=== PATIENT | female | born 2000 | race Caucasian/White ===

== ENCOUNTER 2023-02-23 17:44 | Emergency (ER) | payer OTHER ==
[~2023-02-23] VITALS: Ht 162.6 cm; Wt 114.7 kg
[2023-02-23 18:45] LABS: BASO % 0.3 % (0.0-1.0); HEMATOCRIT 47.2 % (36.0-47.0); HEMOGLOBIN 16.2 g/dl (12.0-15.5); LYMPH # 1.7 10^3/uL (1.5-5.0); LYMPH % 11.4 % (24.0-44.0); MEAN CORPUSCULAR HEMOGLOBIN 30.1 pg (27.0-33.0); MEAN CORPUSCULAR HGB CONC 34.3 g/dl (32.0-36.5); MEAN CORPUSCULAR VOLUME 87.6 fl (80.0-96.0); MONO # 0.7 10^3/uL (0.0-0.8); MONO % 4.7 % (2.0-8.0); NEUTROPHILS # 12.4 10^3/uL (1.5-8.5); NEUTROPHILS % 83.2 % (36.0-66.0); PLATELET COUNT, AUTOMATED 398 10^3/uL (150-450); RED BLOOD COUNT 5.39 10^6/uL (4.00-5.40); WHITE BLOOD COUNT 14.9 10^3/uL (4.0-10.0)
[2023-02-23] MEDS ORDERED: FLUO10CA18 (18:52)
[2023-02-23] MEDS ORDERED: FLUO20CA22 (18:52)
[2023-02-23 19:08] LABS: ALBUMIN 4.9 G/DL (3.2-5.2); BILIRUBIN,DIRECT 0.4 MG/DL (<0.4); BILIRUBIN,TOTAL 1.4 MG/DL (0.3-1.2); TOTAL PROTEIN 8.7 G/DL (5.7-8.2)
[2023-02-23] MEDS ORDERED: PANTOPRAZOLE 40MG VIAL IV ONE (19:20)
[2023-02-23] MEDS ORDERED: NS 1,000 ML IV ONE (19:20)
[2023-02-23] MEDS ORDERED: ONDANSETRON 4MG 2ML VIAL IV ONE (19:20)
[2023-02-23] MEDS ORDERED: ISOVUE-370 76% 100ML VIAL As Ordered ONE (19:20)
[2023-02-23 19:55] VITALS: BP 170/40
[2023-02-23] MEDS ORDERED: PROMETHAZINE 25MG/ML 1ML VIAL IV ONE (20:50)
[2023-02-23] MEDS ORDERED: PROM25TA12 PO (22:24)
[2023-02-23] MEDS ORDERED: PROM25SU3 PR (22:24)
[2023-02-23] MEDS ORDERED: PROMETHAZINE 25MG SUPP PR ONE (22:25)
[2023-02-23] MEDS ORDERED: OMEP40CA4 PO (22:27)
[2023-02-23] MEDS ORDERED: CARA1TAB6 PO (22:27)
[2023-02-23] MEDS ORDERED: PROMETHAZINE 25 MG TAB PO ONE (23:00)
== END 2023-02-23 22:44 | disposition home or self-care (01) ==
LOC: M ED 17:44
DX: R11.15 Cyclical vomiting syndrome unrelated to migraine (principal); Z79.810 Long term (current) use of selective estrogen receptor modulators (SERMs); Z79.899 Other long term (current) drug therapy
CPT/HCPCS: 74177; 80047; 80076; 81001; 83690; 84702; 85025; 96361; 96374; 96375; 99284; C9113; J2405; J2550; Q9967